=== PATIENT | male | born 1980 | race Two or more races ===

== ENCOUNTER 2017-12-29 12:08 | Inpatient (IN) | payer MEDICARE, MEDICAID ==
[~2017-12-29] VITALS: Ht 177.8 cm; Wt 78.9 kg
[2017-12-29] MEDS ORDERED: LORazepam 2 MG/ML VIAL IM ONE (12:45)
[2017-12-29] MEDS ORDERED: HALOPERIDOL LACTATE 5 MG/ML VIAL IM ONE (12:45)
[2017-12-29] MEDS ORDERED: DiphenhydrAMINE HCL 50 MG/ML VIAL IM ONE (12:45)
[2017-12-29 12:50] VITALS: BP 125/73
[2017-12-29] MEDS ORDERED: LORazepam 2 MG/ML VIAL ONE (12:52)
[2017-12-29] MEDS ORDERED: DiphenhydrAMINE HCL 50 MG/ML VIAL ONE (12:53)
[2017-12-29] MEDS ORDERED: HALOPERIDOL LACTATE 5 MG/ML VIAL ONE (12:53)
[2017-12-29 13:00] VITALS: BP 110/70
[2017-12-29] MEDS ORDERED: ZOLPIDEM TARTRATE 10 MG TABLET PO PRN (13:00)
[2017-12-29] MEDS ORDERED: HALOPERIDOL 5 MG TABLET PO PRN (13:00)
[2017-12-29] MEDS ORDERED: RISP2 PO (14:07)
[2017-12-29 14:20] VITALS: BP 108/60
[2017-12-29 16:15] VITALS: BP 118/74
[2017-12-29] MEDS ORDERED: IBUPROFEN 400 MG TABLET PO PRN (20:00)
[2017-12-29] MEDS ORDERED: ACETAMINOPHEN 325 MG TABLET PO PRN (20:00)
[2017-12-30 06:39] VITALS: BP 115/68
[2017-12-30 08:11] VITALS: BP 111/64
[2017-12-30 08:22] LABS: BASOPHILS % (AUTO) 0.6 % (0.0-2.0); EOSINOPHILS % (AUTO) 6.9 % (1.0-6.0); HEMATOCRIT 44.1 % (41-53); HEMOGLOBIN 15.3 g/dL (13.5-17.5); LYMPHOCYTES # (AUTO) 0.6 K/uL (1.0-4.8); LYMPHOCYTES % (AUTO) 14.2 % (22.0-44.0); MEAN CORPUSCULAR HEMOGLOBIN 31.1 pg (26.0-34.0); MEAN CORPUSCULAR HGB CONC 34.6 G/dL (31.0-37.0); MEAN CORPUSCULAR VOLUME 90 fL (80-100); MONOCYTES # (AUTO) 0.4 K/uL (0.1-1.0); MONOCYTES % (AUTO) 8.3 % (2.0-9.0); NEUTROPHILS # (AUTO) 3.2 K/uL (1.8-7.7); PLATELET COUNT (AUTO) 152 K/uL (150-450); RED BLOOD CELL COUNT(AUTO) 4.91 MIL/uL (4.50-5.90); RED CELL DISTRIBUTION WIDTH 13.7 % (11.5-14.5)
[2017-12-30 08:40] LABS: HEMOGLOBIN A1C 4.9 % (4.5-6.2)
[2017-12-30 08:44] LABS: ALANINE AMINOTRANSFERASE 23 U/L (12-78); ALBUMIN 3.8 g/dL (3.4-5.0); ALKALINE PHOSPHATASE 73 U/L (46-116); ANION GAP 6 mmol/L (8-16); ASPARTATE AMINOTRANSFERASE 20 U/L (15-37); BILIRUBIN,TOTAL 0.4 mg/dL (0.1-1.0); CALCIUM, TOTAL 8.7 mg/dL (8.8-10.5); CARBON DIOXIDE 29 mmol/L (22-29); CHLORIDE 105 mmol/L (98-107); CHOL/HDL RATIO 3.1 (4.2-7.3); CHOLESTEROL 144 mg/dL (131-200); CREATININE 0.69 mg/dL (0.60-1.30); FREE T4 (FREE THYROXINE) 0.88 ng/dL (0.76-1.46); GLOMERULAR FILTR. RATE CALC > 60 mL/min (>60); GLUCOSE,RANDOM 82 mg/dL (70-110); HDL CHOLESTEROL 47 mg/dL (40-60); LDL CHOL (CALC.) 86 mg/dL (0-130); POTASSIUM 4.5 mmol/L (3.5-5.1); SODIUM SERUM 140 mmol/L (136-145); TOTAL PROTEIN, SERUM 6.7 g/dL (6.4-8.2); TRIGLYCERIDES 54 mg/dL (15-150); UREA NITROGEN, BLOOD 11 mg/dL (7-18)
[2017-12-30 08:59] LABS: THYROID STIMULATING HORMONE 0.94 uIU/mL (0.36-3.74)
[2017-12-30 16:11] VITALS: BP 108/65
[2017-12-30] MEDS: RisperiDONE 2 MG TABLET PO SCH (21:07)
[2017-12-31 06:16] VITALS: BP 128/67
[2017-12-31 08:20] VITALS: BP 126/71
[2017-12-31] MEDS: LORazepam 2 MG TABLET PO PRN (16:16)
[2017-12-31 16:26] VITALS: BP 127/70
[2017-12-31] MEDS: RisperiDONE 2 MG TABLET PO SCH (20:24)
[2018-01-01 04:49] VITALS: BP 148/85
[2018-01-01] MEDS: LORazepam 2 MG TABLET PO PRN (08:13)
[2018-01-01 08:35] VITALS: BP 112/82
[2018-01-01] MEDS ORDERED: RISP2TAB76 PO (14:22)
== END 2018-01-01 14:59 | disposition home or self-care (01) | DRG 885 ==
LOC: B3A 13:43
DX: F20.0 Paranoid schizophrenia (principal); Z59.0 Homelessness; F10.10 Alcohol abuse, uncomplicated; G47.00 Insomnia, unspecified; K59.09 Other constipation; Z79.899 Other long term (current) drug therapy; Z71.41 Alcohol abuse counseling and surveillance of alcoholic
CPT/HCPCS: 83036; 84436; 84439; 84443; 87081; J1200; J1630; J2060